=== PATIENT | male | born 1970 | race Caucasian/White ===

== ENCOUNTER → 2021-03-29 14:12 | Outpatient (CLI) | payer OTHER, MEDICAID, SELFPAY ==
[2021-03-29 14:47] LABS: COVID19 -Nasal RAPID Negative (Negative)
== END ==
PROVIDERS: Referring Provider Nurse Practitioner Family; Visit Provider Nurse Practitioner Family
DX: Z20.822 Contact with and (suspected) exposure to COVID-19 (principal); R09.81 Nasal congestion; R51.9 Headache, unspecified
CPT/HCPCS: 87635